=== PATIENT | male | born 1980 | race Caucasian/White ===

== ENCOUNTER 2018-03-14 17:11 | Emergency (ER) | payer OTHER ==
[~2018-03-14] VITALS: Ht 177.8 cm; Wt 93.0 kg
[~2018-03-14 17:11] MED LIST: CIPRO500 MG PO; CYCLOBENZAPRINE5 MG PO; FLEXERIL PO; IBUPROFEN 800800 M1 PO; INDOMETHACIN 5050 M1 PO; LEVSIN0.125 MG PO; MEDROLDOSEPACK PO; NAPROSYN500 MG PO; NOHOMEMEDICATIONS; NORCO 5-325 TA1 EACH PO; PERCOCET 5-3251 EACH PO; PHENAZOPYRIDIN200 M2 PO; PREDNISONE 10 M10 MG PO; PREDNISONE 20 M20 M1 PO; TESSALON PERLE100 MG PO; TORADOL 10 MG T10 MG PO; ULTRAM 50MG TAB50 MG PO; VENTOLIN17 GM INH
[2018-03-14] MEDS ORDERED: ALLOPURINOL 30300 M1 PO (17:21)
[2018-03-14] MEDS ORDERED: NORCO 5-325 TA1 EAC1 PO (18:16)
[2018-03-14] MEDS ORDERED: MEDROLDOSEPACK PO (18:16)
[2018-03-14 18:25] VITALS: BP 120/66
== END 2018-03-14 18:28 | disposition home or self-care (01) ==
LOC: M.ERS 17:11
DX: M10.9 Gout, unspecified (principal); Z86.14 Personal history of Methicillin resistant Staphylococcus aureus infection

== ENCOUNTER 2018-06-23 07:42 | Emergency (ER) | payer OTHER ==
[~2018-06-23] VITALS: Ht 177.8 cm; Wt 93.0 kg
[~2018-06-23 07:42] MED LIST changes: +ALLOPURINOL 30300 M1 PO; +NORCO 5-325 TA1 EAC1 PO
[2018-06-23] MEDS ORDERED: ZYLOPRIM300 MG PO (07:53)
[2018-06-23] MEDS ORDERED: PREDNISONE 10 M10 MG PO (07:54)
[2018-06-23 08:20] LABS: ABSOLUTE BASOPHILS 0.1 thou/uL (0.0-0.2); ABSOLUTE EOSINOPHILS 0.6 thou/uL (0.0-0.7); ABSOLUTE LYMPHOCYTES 2.6 thou/uL (0.8-5.3); ABSOLUTE MONOCYTES 1.1 thou/uL (0.0-1.2); ABSOLUTE NEUTROPHILS 9.9 thou/uL (1.6-8.1); BASOPHILS 0.8 %; HEMATOCRIT 44.3 % (42.0-52.0); HEMOGLOBIN 15.3 gm/dL (14.0-18.0); LYMPHOCYTES 17.9 %; MCH 30.4 pg (26.0-34.0); MCHC 34.5 g/dL (28.0-37.0); MCV 88.2 fL (80.0-100.0); MPV 8.7 fl. (7.2-11.1); NUCLEATED RBCS 0 /100WBC; PLATELET COUNT* 268 thou/uL (150-400); POLYS 69.3 %; RBC 5.02 mil/uL (4.50-6.00); RDW-CV 13.5 % (10.5-14.5); WBC 14.3 thou/uL (4.0-11.0)
[2018-06-23 08:26] LABS: ANION GAP 11 mmol/L (7-16); BUN 14 mg/dL (7-18); CHLORIDE 102 mmol/L (98-107); CO2 26 mmol/L (21-32); CREATININE 1.4 mg/dL (0.6-1.3); GLUCOSE 106 mg/dL (70-99); POTASSIUM 4.2 mmol/L (3.5-5.1); SODIUM 139 mmol/L (136-145)
[2018-06-23 08:31] LABS: APTT 28.3 Seconds (25.0-31.3)
[2018-06-23 08:37] LABS: ALBUMIN 4.1 g/dL (3.4-5.0); ALKALINE PHOSPHATASE 65 U/L (46-116); LIPASE 293 U/L (73-393); MAGNESIUM 1.8 mg/dL (1.8-2.4); NT-PRO BRAIN NAT PEPTIDE 23 pg/mL (<300); SGOT 27 U/L (15-37); SGPT 59 U/L (30-65); TOTAL BILIRUBIN 0.5 mg/dL (<0.1-1.0); TOTAL PROTEIN 8.7 g/dL (6.4-8.2); TROPONIN-I LEVEL <0.06 ng/mL (<0.06)
--- NOTE | 2018-06-23 09:12 | EKG ---
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
[2018-06-23] MEDS ORDERED: HYDROCODONE-AP1 EAC6 PO (11:03)
[2018-06-23] MEDS ORDERED: FLEXERIL PO (11:03)
[2018-06-23 11:23] VITALS: BP 119/77
--- NOTE | 2018-06-23 17:51 | EKG ---
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
== END 2018-06-23 11:23 | disposition home or self-care (01) ==
LOC: M.ERS 07:42
PROVIDERS: Emergency Medicine Emergency Medical Services
DX: R07.89 Other chest pain (principal); M79.601 Pain in right arm; M10.9 Gout, unspecified

== ENCOUNTER 2018-10-13 17:24 | Emergency (ER) | payer OTHER ==
[~2018-10-13] VITALS: Ht 177.8 cm; Wt 95.3 kg
[~2018-10-13 17:24] MED LIST changes: +HYDROCODONE-AP1 EAC6 PO; +ZYLOPRIM300 MG PO
[2018-10-13 18:04] LABS: ABSOLUTE BASOPHILS 0.1 thou/uL (0.0-0.2); ABSOLUTE EOSINOPHILS 0.5 thou/uL (0.0-0.7); ABSOLUTE LYMPHOCYTES 2.1 thou/uL (0.8-5.3); ABSOLUTE MONOCYTES 1.5 thou/uL (0.0-1.2); ABSOLUTE NEUTROPHILS 13.2 thou/uL (1.6-8.1); BASOPHILS 0.8 %; EOSINOPHILS 2.9 %; HEMATOCRIT 43.4 % (42.0-52.0); HEMOGLOBIN 15.2 gm/dL (14.0-18.0); LYMPHOCYTES 11.9 %; MCH 30.2 pg (26.0-34.0); MCHC 35.1 g/dL (28.0-37.0); MCV 86.2 fL (80.0-100.0); MONOCYTES 8.5 %; MPV 8.4 fl. (7.2-11.1); NUCLEATED RBCS 0 /100WBC; PLATELET COUNT* 240 thou/uL (150-400); POLYS 75.9 %; RBC 5.04 mil/uL (4.50-6.00); RDW-CV 14.1 % (10.5-14.5); WBC 17.3 thou/uL (4.0-11.0)
[2018-10-13 18:16] LABS: CALCIUM 9.6 mg/dL (8.5-10.1); CREATININE 1.3 mg/dL (0.6-1.3); POTASSIUM 4.2 mmol/L (3.5-5.1)
[2018-10-13 18:21] LABS: ALBUMIN 3.9 g/dL (3.4-5.0); TOTAL BILIRUBIN 0.7 mg/dL (<0.1-1.0); TOTAL PROTEIN 8.2 g/dL (6.4-8.2); URIC ACID* 9.9 mg/dL (2.6-7.2)
[2018-10-13 19:11] LABS: ESR (SEDRATE) 18 mm/hr (0-15)
[2018-10-13] MEDS ORDERED: NORCO 5-325 TA1 EACH PO (20:24)
[2018-10-13 20:53] VITALS: BP 145/78
== END 2018-10-13 20:53 | disposition home or self-care (01) ==
LOC: M.ERS 17:24
PROVIDERS: Nurse Practitioner Family
DX: M79.672 Pain in left foot (principal); M25.532 Pain in left wrist; M54.5 Low back pain; M10.9 Gout, unspecified

== ENCOUNTER 2019-06-25 14:14 | Inpatient (IN) | payer OTHER ==
[~2019-06-25] VITALS: Ht 177.8 cm; Wt 99.8 kg
[~2019-06-25 14:14] MED LIST changes: +ALLOPURINOL 10100 M1 PO
[2019-06-25 14:22] VITALS: BP 122/80
[2019-06-25] MEDS ORDERED: INDOMETHACIN SR75 MG PO (14:26)
[2019-06-25 15:21] LABS: ABSOLUTE BASOPHILS 0.2 thou/uL (0.0-0.2); ABSOLUTE EOSINOPHILS 0.4 thou/uL (0.0-0.7); ABSOLUTE LYMPHOCYTES 1.5 thou/uL (0.8-5.3); ABSOLUTE MONOCYTES 1.1 thou/uL (0.0-1.2); ABSOLUTE NEUTROPHILS 10.8 thou/uL (1.6-8.1); BASOPHILS 1.2 %; EOSINOPHILS 3.2 %; HEMATOCRIT 41.3 % (42.0-52.0); HEMOGLOBIN 14.4 gm/dL (14.0-18.0); LYMPHOCYTES 10.6 %; MCH 29.9 pg (26.0-34.0); MCHC 34.8 g/dL (28.0-37.0); MONOCYTES 7.6 %; MPV 8.4 fl. (7.2-11.1); NUCLEATED RBCS 0 /100WBC; PLATELET COUNT* 265 thou/uL (150-400); POLYS 77.4 %; RDW-CV 13.6 % (10.5-14.5); WBC 13.9 thou/uL (4.0-11.0)
[2019-06-25 15:52] LABS: CALCIUM 9.3 mg/dL (8.5-10.1); CREATININE 1.5 mg/dL (0.6-1.3); POTASSIUM 3.8 mmol/L (3.5-5.1)
[2019-06-25 15:56] LABS: TOTAL BILIRUBIN 0.8 mg/dL (<0.1-1.0); TOTAL PROTEIN 8.6 g/dL (6.4-8.2)
[2019-06-25 16:52] VITALS: BP 134/106
[2019-06-25 18:00] VITALS: BP 134/88
[2019-06-25] MEDS ORDERED: MITIGARE0.6 MG PO (18:10)
[2019-06-25 19:35] VITALS: BP 111/66
[2019-06-25 20:05] LABS: BF RBC 3261 /mm3; TOTAL CELL COUNT 32857 /mm3
[2019-06-25 20:38] LABS: TOTAL VOLUME 20 ml
[2019-06-25 20:39] LABS: CLARITY CLOUDY
[2019-06-26] VITALS: BP 106/65
[2019-06-26 04:00] VITALS: BP 112/51
[2019-06-26 04:43] LABS: ABSOLUTE EOSINOPHILS 0.2 thou/uL (0.0-0.7); ABSOLUTE LYMPHOCYTES 1.1 thou/uL (0.8-5.3); ABSOLUTE MONOCYTES 0.9 thou/uL (0.0-1.2); ABSOLUTE NEUTROPHILS 8.2 thou/uL (1.6-8.1); BASOPHILS 0.3 %; EOSINOPHILS 1.8 %; HEMATOCRIT 37.1 % (42.0-52.0); HEMOGLOBIN 12.8 gm/dL (14.0-18.0); LYMPHOCYTES 10.4 %; MCH 29.7 pg (26.0-34.0); MCHC 34.6 g/dL (28.0-37.0); MCV 85.9 fL (80.0-100.0); MONOCYTES 8.3 %; NUCLEATED RBCS 0 /100WBC; PLATELET COUNT* 194 thou/uL (150-400); POLYS 79.2 %; RBC 4.32 mil/uL (4.50-6.00); RDW-CV 13.3 % (10.5-14.5); WBC 10.4 thou/uL (4.0-11.0)
[2019-06-26 04:56] LABS: CALCIUM 8.4 mg/dL (8.5-10.1); CREATININE 1.5 mg/dL (0.6-1.3)
[2019-06-26 06:10] LABS: AMP/METHAMP Negative (Negative); BARBITURATES Negative (Negative); BENZODIAZEPINES Negative (Negative); COCAINE Negative (Negative); METHADONE Negative (Negative); OPIATES POSITIVE (Negative); PCP Negative (Negative); THC Negative (Negative)
[2019-06-26 06:23] LABS: SOURCE RIGHT KNEE
[2019-06-26 06:24] LABS: BF LYMPHOCYTES 8 %; BF MONOCYTES 3 %; BF POLYS 89 %
[2019-06-26 07:20] VITALS: BP 126/76
[2019-06-26 08:55] VITALS: BP 112/51
[2019-06-26 15:49] VITALS: BP 125/85
[2019-06-26 20:55] VITALS: BP 132/78
[2019-06-27] VITALS: BP 121/76
[2019-06-27 03:30] VITALS: BP 115/62
[2019-06-27 07:15] VITALS: BP 109/61
--- NOTE | 2019-06-27 07:22 | CON ---
[address] [address] CONSULTATION Name: GEMMAJAYDA L Room: [address] IN M.R.#: [id number] Admission: 06/25/19 Attend Phys: Bryn Li MD Discharge: Date of : 76 Report #: [id number] THIS REPORT FOR: //name// CC: Bryn Li FAM physician/PCP DATE OF SERVICE: 06/26/2019 INFECTIOUS DISEASE CONSULTATION ATTENDING PHYSICIAN: Bryn Li MD REASON FOR EVALUATION: Septic arthritis, right knee. HISTORY OF PRESENT ILLNESS: Chart reviewed, patient examined. This is a 39-year-old with a known history of what sounds like recurrent septic arthritis, also has known gout, who had abrupt onset of right knee pain. He denies antecedent injury. He notes this is actually not the first time. He has had involvement of both knees at points over the course of last 8 years as well as the left elbow. He states most recently in 2018 while traveling. He was hospitalized, felt to have an infection. He does not remember details. He suspects that he had cultures; however, he has no recollection of any particular organism. Denies any significant fevers or chills. Appetite has been somewhat diminished. No pulmonary or gastrointestinal-related complaints. He is tentatively scheduled to undergo operative debridement. He had an arthrocentesis which showed elevated white count of 32,857 and 89% polynuclear cells. Due to concern about infectious cause, he was started empirically on therapy with vancomycin. ALLERGIES: None known. CURRENT MEDICATIONS: Include allopurinol, vancomycin, pantoprazole, colchicine, enoxaparin, Unasyn, acetaminophen, p.r.n. analgesics and antiemetics. PAST MEDICAL HISTORY: As described above, previous history of aneurysm, history of gout, amputation of fifth digit left hand. SOCIAL HISTORY: Nonsmoker, no ethanol, no illicit drug use. FAMILY HISTORY: Noncontributory. REVIEW OF SYSTEMS: As above, otherwise unremarkable. PHYSICAL EXAMINATION: GENERAL: He is alert and cooperative. He is seen in the preoperative area, mild to [place] [address] CONSULTATION Name: JAYDA MENENDEZ Room: [address]#: [id number] Admission: 06/25/19 Attend Phys: Bryn Li MD Discharge: Date of : 76 Report #: [id number] VITAL SIGNS: Temperature max 101.3, more recently 98.8; pulse 100; respirations 17; blood pressure 112/51. SKIN: Warm, dry. No rashes. HEENT: Otherwise unremarkable. Normocephalic. Extraocular muscles intact. NECK: Supple. LUNGS: Clear to auscultation bilaterally. HEART: Borderline tachycardic. I do not appreciate a murmur. ABDOMEN: Soft, nontender, nondistended. EXTREMITIES: Right-sided compression dressing. There is some evidence of swelling, it is tender, did not attempt range of motion. LABORATORY AND X-RAY DATA: Right knee fluid yellow, cloudy, 32,857 white cells, 30-61 red cells, 89% polys, 3% monocytes, 8% lymphs. CRP of 118.4. Sed rate of 27. Lactic acid 1.2. Electrolytes: Sodium 137, potassium 4.0, chloride 103, bicarbonate 27, anion gap of 7, BUN and creatinine of 17 and 1.5, glucose of 102. Estimated GFR 52. CBC: White count of 10.4, H and H of 12.8 and 37.1, platelets of 194. ASSESSMENT AND PLAN: Inflammatory process involving the right knee, somewhat unusual to have in adult, recurrent, spontaneous involving multiple different joints over the span of several years without antecedent injury that can entirely exclude it given his history what he recalls. It is reasonable to use anti-gout therapy as well. We will follow up on the fluid microbiology. At this point, we would continue empiric antimicrobial therapy. <ELECTRONICALLY SIGNED> By: Renaldo Lackey MD 06/27/19 0722 1057 [id number] Lackey MD /nt
[2019-06-27 08:31] LABS: CALCIUM 8.1 mg/dL (8.5-10.1); CREATININE 1.2 mg/dL (0.6-1.3); POTASSIUM 3.4 mmol/L (3.5-5.1)
[2019-06-27 08:46] LABS: ABSOLUTE BASOPHILS 0.1 thou/uL (0.0-0.2); ABSOLUTE EOSINOPHILS 0.1 thou/uL (0.0-0.7); ABSOLUTE LYMPHOCYTES 1.8 thou/uL (0.8-5.3); ABSOLUTE MONOCYTES 0.8 thou/uL (0.0-1.2); ABSOLUTE NEUTROPHILS 8.6 thou/uL (1.6-8.1); BASOPHILS 0.6 %; EOSINOPHILS 0.9 %; HEMOGLOBIN 12.5 gm/dL (14.0-18.0); LYMPHOCYTES 16.1 %; MCH 29.4 pg (26.0-34.0); MCHC 34.7 g/dL (28.0-37.0); MCV 84.7 fL (80.0-100.0); MONOCYTES 7.2 %; MPV 7.8 fl. (7.2-11.1); NUCLEATED RBCS 0 /100WBC; PLATELET COUNT* 208 thou/uL (150-400); POLYS 75.2 %; RBC 4.25 mil/uL (4.50-6.00); RDW-CV 13.1 % (10.5-14.5); WBC 11.4 thou/uL (4.0-11.0)
--- NOTE | 2019-06-27 10:05 | EKG ---
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: MATHIEU : 1980 Requested By: Yessi Schuster Order Number: [id number] MD: Frankie Daniel Measurements Intervals [place] Rate: 109 P: 41 [place]: 164 QRS: 53 QRSD: 103 T: 7 QT: 344 QTc: 464 Interpretive Statements Sinus tachycardia Inferior infarct, old Compared to ECG 06/23/2018 09:57:53 Sinus rhythm no longer present Myocardial infarct finding still present Electronically Signed On 06-27-2019 10:04:45 FUNCTIONAL ANALYST by Frankie Daniel [email or web address] <ELECTRONICALLY SIGNED> By: Frankie Daniel MD, FACWilfred 06/27/19 1004 1656 1656 Frankie Daniel MD, [facility] /EPI
[2019-06-27 12:06] LABS: BODY FLUID PROTEIN 5.1 g/dL (())
[2019-06-27 17:02] VITALS: BP 141/83
[2019-06-27 20:19] VITALS: BP 141/72
[2019-06-28] VITALS: BP 120/82
[2019-06-28 03:51] LABS: ABSOLUTE EOSINOPHILS 0.4 thou/uL (0.0-0.7); ABSOLUTE LYMPHOCYTES 2.1 thou/uL (0.8-5.3); ABSOLUTE MONOCYTES 0.8 thou/uL (0.0-1.2); ABSOLUTE NEUTROPHILS 5.2 thou/uL (1.6-8.1); BASOPHILS 0.4 %; EOSINOPHILS 4.8 %; HEMATOCRIT 35.1 % (42.0-52.0); HEMOGLOBIN 12.4 gm/dL (14.0-18.0); MCH 30.1 pg (26.0-34.0); MCHC 35.3 g/dL (28.0-37.0); MCV 85.2 fL (80.0-100.0); MONOCYTES 9.8 %; MPV 8.4 fl. (7.2-11.1); NUCLEATED RBCS 0 /100WBC; PLATELET COUNT* 237 thou/uL (150-400); RBC 4.12 mil/uL (4.50-6.00); RDW-CV 13.1 % (10.5-14.5); WBC 8.6 thou/uL (4.0-11.0)
[2019-06-28 04:00] VITALS: BP 128/76
[2019-06-28 04:03] LABS: ALBUMIN 2.9 g/dL (3.4-5.0); CREATININE 1.3 mg/dL (0.6-1.3); POTASSIUM 3.6 mmol/L (3.5-5.1); TOTAL BILIRUBIN 0.5 mg/dL (<0.1-1.0)
[2019-06-28 07:10] VITALS: BP 141/90
[2019-06-28 09:09] LABS: INFLUENZA A ANTIGEN Negative (Negative); INFLUENZA B ANTIGEN Negative (Negative)
[2019-06-28 17:14] VITALS: BP 129/78
[2019-06-28 21:13] VITALS: BP 116/52
[2019-06-29 04:24] LABS: HEMATOCRIT 36.4 % (42.0-52.0); HEMOGLOBIN 12.5 gm/dL (14.0-18.0); MCH 29.3 pg (26.0-34.0); MCHC 34.5 g/dL (28.0-37.0); MCV 84.9 fL (80.0-100.0); MPV 8.5 fl. (7.2-11.1); NUCLEATED RBCS 0 /100WBC; PLATELET COUNT* 229 thou/uL (150-400); RBC 4.28 mil/uL (4.50-6.00); RDW-CV 12.8 % (10.5-14.5); WBC 6.1 thou/uL (4.0-11.0)
[2019-06-29 04:50] LABS: ALBUMIN 3.1 g/dL (3.4-5.0); CALCIUM 8.5 mg/dL (8.5-10.1); CREATININE 1.5 mg/dL (0.6-1.3); POTASSIUM 3.5 mmol/L (3.5-5.1); TOTAL BILIRUBIN 0.5 mg/dL (<0.1-1.0); TOTAL PROTEIN 7.3 g/dL (6.4-8.2)
[2019-06-29 05:25] LABS: ABSOLUTE EOSINOPHILS 0.1 thou/uL (0.0-0.7); ABSOLUTE LYMPHOCYTES 0.9 thou/uL (0.8-5.3); ABSOLUTE MONOCYTES 0.5 thou/uL (0.0-1.2); ABSOLUTE NEUTROPHILS 4.5 thou/uL (1.6-8.1); ANISOCYTOSIS 1+; PLATELET ESTIMATE ADEQUATE; POIKILOCYTOSIS 1+
[2019-06-29 07:25] VITALS: BP 123/79
[2019-06-29] MEDS ORDERED: HYDROCODON-ACE1 EAC7 PO (09:24)
[2019-06-29] MEDS ORDERED: BENZONATATE100 MG PO (09:24)
[2019-06-29] MEDS ORDERED: PANTOPRAZOLE SO40 M1 PO (09:24)
[2019-06-29] MEDS ORDERED: MUCINEX600 MG PO (09:24)
[2019-06-29 09:35] VITALS: BP 123/79
--- NOTE | 2019-07-01 11:32 | OP ---
[address] [address] OPERATIVE REPORT Name: JAYDA MENENDEZ Gabriel Room: [address] IN .R.#: [id number] Admission: 06/25/19 Attend Phys: Bryn Li MD Discharge: 06/29/19 Date of : 76 Report #: [id number] THIS REPORT FOR: //name// CC: Bryn Li [facility] physician/PCP DICTATED BY: Smith Arreguin DO DATE OF SERVICE: 06/26/2019 PREOPERATIVE DIAGNOSIS: Right knee septic arthritis. POSTOPERATIVE DIAGNOSIS: Right knee septic arthritis versus possible acute gout. PROCEDURE PERFORMED: Right knee arthroscopic irrigation and debridement. SURGEON: Asad wall DO PLASTER MOLD MAKER: Smith Arreguin DO PLASTER MOLD MAKER: Lin Irwin DO ANESTHESIA: General. ESTIMATED BLOOD LOSS: 5 mL. SPECIMENS: Aerobic and anaerobic cultures x 2. COMPLICATIONS: None. CONDITION: The patient is stable to PACU. INDICATIONS FOR PROCEDURE: The patient is a pleasant 39-year-old male who presented to the Emergency Department yesterday evening for evaluation of right knee pain. He has a history of septic arthritis on 2 separate occasions in this knee, most recently back in 2017. This was treated with arthroscopic irrigation and debridement at an outside facility. He denied any specific injury or inciting event. He had significant swelling and inability to bear weight to the right knee. He also had decreased passive and active range of motion. The right knee was aspirated yesterday evening and synovial fluid analysis showed 33,000 white blood cells with 89% PMNs. Right knee arthroscopic irrigation and debridement was recommended for the patient. The risks, benefits, and alternatives were discussed and the patient wished to proceed. INTRAOPERATIVE FINDINGS: Upon diagnostic arthroscopy of the right knee, [place] [address] OPERATIVE REPORT Name: JAYDA MENENDEZ Room: [address] IN [facility].#: [id number] Admission: 06/25/19 Attend Phys: Bryn iL MD Discharge: 06/29/19 Date of : 76 Report #: [id number] was noted to be what appeared to be gouty tophi in all 3 compartments. There was extensive scar tissue formation mostly in the anterior aspect of the knee, likely from prior arthroscopic procedures. He was noted to have some contracture of the prepatellar fat pad. There was grade 2 degenerative change throughout the entire knee. There was no gross purulence. DESCRIPTION OF PROCEDURE: The patient was seen and examined in the preoperative holding area. The correct operative extremity was then marked. Written consent was obtained for the procedure. The patient was transferred to the operating room and placed supine on the operating table. He was given the benefit of general anesthesia. A well-padded tourniquet was placed to the right thigh. The right lower extremity was placed in the arthroscopic leg francisco. The left lower extremity was well padded. Right lower extremity was prepped and draped in the usual sterile fashion. Timeout was performed to verify the correct patient, procedure, and operative extremity and all were in agreement. Right lower extremity was then exsanguinated with the Esmarch and the tourniquet was inflated to 300 mmHg. This was inflated for approximately 20 minutes. Procedure was then begun with establishing the anterolateral portal with an 11 blade scalpel. The arthroscope was then inserted into the knee and diagnostic arthroscopy was performed with the above findings. The medial portal was then established with a spinal needle and visualization with the arthroscope. This was created with an 11 blade scalpel. A trocar was then inserted followed by the arthroscopic shaver. A debridement was then performed of the scar tissue and hyperemic synovium. The knee was then irrigated with a total of 9 liters of normal saline. The knee was drained. At the time of insertion of the initial trocar, cultures were obtained from the synovial fluid, 2 anaerobic cultures and 2 aerobic cultures. After running 9 liters of fluid through the knee, the arthroscopic instruments were then removed. The incisions were closed with simple interrupted nylon sutures. A 20 mL of 0.5% ropivacaine were injected into the knee. Sterile dressing of Xeroform, 4 x 4s, soft roll, and an Leonardo wrap was applied to the right lower extremity. The patient was awakened from anesthesia and transferred to the PACU in stable condition. POSTOPERATIVE PLAN: The patient will be re-admitted to the floor. We will follow his cultures from both the aspirate as well as the intraoperative cultures. Infectious Disease will be consulted. He will also be started on anti-inflammatories for treatment of possible gout. We will await results of the synovial fluid analysis. The patient can be weightbearing as tolerated to the right lower extremity. <ELECTRONICALLY SIGNED> By: Tex Talbert DO 07/01/19 1132 1149 1207Asad Wall DO /nasra
== END 2019-06-29 17:16 | disposition home or self-care (01) | DRG 501 ==
LOC: M.ERS 14:14 → M.ORTHSURG 15:50 → M.TBA-ER 15:50 → M.ORTHSURG 17:21
PROVIDERS: Family Medicine; Orthopaedic Surgery; ADMIT Internal Medicine
PROC: 0JDN0ZZ Extraction of Right Lower Leg Subcutaneous Tissue and Fascia, Open Approach (ICD-10-PCS; principal; 2019-06-26)
DX: M00.9 Pyogenic arthritis, unspecified (principal); N17.9 Acute kidney failure, unspecified; M10.9 Gout, unspecified; J98.8 Other specified respiratory disorders; M11.9 Crystal arthropathy, unspecified; M25.461 Effusion, right knee; Z89.9 Acquired absence of limb, unspecified; Z79.899 Other long term (current) drug therapy

== ENCOUNTER 2019-07-06 09:28 | Emergency (ER) | payer OTHER ==
[~2019-07-06] VITALS: Ht 177.8 cm; Wt 97.5 kg
[~2019-07-06 09:28] MED LIST changes: +BENZONATATE100 MG PO; +HYDROCODON-ACE1 EAC7 PO; +INDOMETHACIN SR75 MG PO; +MITIGARE0.6 MG PO; +MUCINEX600 MG PO; +PANTOPRAZOLE SO40 M1 PO
[2019-07-06] MEDS ORDERED: INDOMETHACIN 2525 MG PO (10:17)
[2019-07-06 10:37] VITALS: BP 130/75
== END 2019-07-06 10:37 | disposition home or self-care (01) ==
LOC: M.ERS 09:28
DX: G89.18 Other acute postprocedural pain (principal); M25.561 Pain in right knee; Z86.14 Personal history of Methicillin resistant Staphylococcus aureus infection

== ENCOUNTER 2019-11-18 21:03 | Emergency (ER) | payer OTHER ==
[~2019-11-18] VITALS: Ht 177.8 cm; Wt 95.3 kg
[~2019-11-18 21:03] MED LIST changes: +COLCHICINE0.6 MG PO; +INDOMETHACIN 2525 MG PO; +INDOMETHACIN SR75 M1 PO
[2019-11-18] MEDS ORDERED: TORADOL 10 MG T10 MG PO (22:46)
[2019-11-18] MEDS ORDERED: MEDROLDOSEPACK PO (22:46)
[2019-11-18] MEDS ORDERED: HYDROCODON-ACE1 EAC7 PO (22:46)
[2019-11-18 23:14] VITALS: BP 122/72
== END 2019-11-18 23:14 | disposition home or self-care (01) ==
LOC: M.ERS 21:03
DX: M10.062 Idiopathic gout, left knee (principal); Z86.14 Personal history of Methicillin resistant Staphylococcus aureus infection

== ENCOUNTER 2020-03-17 00:14 | Observation (INO) | payer BC ==
[~2020-03-17] VITALS: Ht 177.8 cm; Wt 93.0 kg
[2020-03-17 00:16] VITALS: BP 148/82
[2020-03-17 00:52] LABS: ABSOLUTE EOSINOPHILS 0.6 thou/uL (0.0-0.7); ABSOLUTE LYMPHOCYTES 3.8 thou/uL (0.8-5.3); ABSOLUTE MONOCYTES 1.2 thou/uL (0.0-1.2); BASOPHILS 0.2 %; EOSINOPHILS 4.5 %; HEMATOCRIT 44.2 % (42.0-52.0); LYMPHOCYTES 27.9 %; MCH 29.9 pg (26.0-34.0); MCV 88.1 fL (80.0-100.0); MONOCYTES 8.9 %; MPV 8.2 fl. (7.2-11.1); NUCLEATED RBCS 0 /100WBC; PLATELET COUNT* 275 thou/uL (150-400); POLYS 58.5 %; RBC 5.02 mil/uL (4.50-6.00); RDW-CV 15.5 % (10.5-14.5); WBC 13.7 thou/uL (4.0-11.0)
[2020-03-17 00:56] LABS: CREATININE 1.5 mg/dL (0.6-1.3); POTASSIUM 3.4 mmol/L (3.5-5.1)
[2020-03-17 01:00] LABS: PROTIME 10.4 Seconds (9.20-11.50); TOTAL BILIRUBIN 0.5 mg/dL (<0.1-1.0); TOTAL PROTEIN 7.7 g/dL (6.4-8.2)
[2020-03-17 02:47] LABS: URINE BILIRUBIN NEGATIVE (Negative); URINE BLOOD 1+ (Negative); URINE CLARITY CLEAR; URINE COLOR YELLOW; URINE GLUCOSE-RANDOM NEGATIVE (Negative); URINE KETONES NEGATIVE (Negative); URINE LEUKOCYTES-REFLEX TRACE (Negative); URINE NITRITE-REFLEX NEGATIVE (Negative); URINE PROTEIN NEGATIVE (Negative); URINE UROBILINOGEN 0.2 E.U./dl (0.2-1.0)
[2020-03-17 02:54] LABS: AMP/METHAMP Negative (Negative); BARBITURATES Negative (Negative); BENZODIAZEPINES Negative (Negative); COCAINE Negative (Negative); METHADONE Negative (Negative); OPIATES Negative (Negative); PCP Negative (Negative); THC Negative (Negative)
[2020-03-17 03:11] LABS: RENAL EPITHELIAL CELLS 0-3 Few /LPF (None Seen); SQUAMOUS 0-3 Few /LPF (0-3); URINE RBC 3-10 Few /HPF (0-2); URINE WBC-REFLEX 6-15 Few /HPF (0-5)
[2020-03-17 03:12] LABS: AMORPHOUS PHOSPHATES Many /LPF (None Seen); CASTS None Seen /LPF (None Seen); MUCUS 4-6 Moderate strn/LPF (None Seen)
[2020-03-17 03:34] VITALS: BP 119/79
[2020-03-17 08:00] VITALS: BP 112/68
--- NOTE | 2020-03-17 11:14 | EKG ---
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: [place] : 1980 Requested By: Michelle Clay Order Number: [id number] MD: Frankie Daniel Measurements Intervals [place] Rate: 103 P: [place]: QRS: 70 QRSD: 113 T: -26 QT: 328 QTc: 430 Interpretive Statements sinus tachycardia Baseline wander in lead(s) III Compared to ECG 06/25/2019 16:56:29 no change Electronically Signed On 03-17-2020 11:14:18 CDT by Frankie Daniel [email or web address] <ELECTRONICALLY SIGNED> By: Frankie Daniel MD, FACC 03/17/20 1114 0024 0024 Frankie Daniel MD, [facility] /EPI
--- NOTE | 2020-03-17 11:16 | CON ---
[address] [address] CONSULTATION Name: JAYDA MENENDEZ Room: [address] Carolee Iverson#: [id number] Admission: 03/17/20 Attend Phys: Bryn Li MD Discharge: Date of : 76 Report #: [id number] THIS REPORT FOR: //name// cc: CLEMENTINE Dodson family physician/PCP CLEMENTINE Dodson family physician/PCP ~ THIS REPORT FOR: //name// DATE OF SERVICE: 03/17/2020 CARDIOLOGY CONSULTATION HISTORY OF PRESENT ILLNESS: The patient is a 39-year-old single white male who I was asked to see in the hospital today after he complained of being short of breath. The patient has no previous history of heart disease. He was actually admitted here to [facility] in June of this year with an episode of acute gout. He stays very active, working out at the gym almost on a daily basis. He has had no previous history of heart disease. He was doing well until last night, he went to sleep. He then awakened at 10:00 p.m. complaining hard to take a deep breath. He felt short of breath. There was no radiation of the heaviness into his arms or jaw. He felt as if he needed to burp. He denies any recent fever or cough. He denies palpitations or syncope. His girlfriend brought him to the Emergency Room and he is admitted for further evaluation and treatment. PAST MEDICAL HISTORY: He has had surgery on his left hand, following an accident. 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 He apparently has neck pain and had an MRI that showed brain aneurysm and he is scheduled to undergo percutaneous ablation of his aneurysm at in 2 weeks. He has no history of hypertension, diabetes or hyperlipidemia. MEDICATIONS: He currently is receiving injections of testosterone, not prescribed by a physician. He takes medications for gout. ALLERGIES: He has no known drug allergies. FAMILY HISTORY: He is adopted. 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 No smoking, alcohol abuse or illicit drug use. REVIEW OF SYSTEMS: No history of stroke, asthma, liver disease, cancer or chronic skin condition. PHYSICAL EXAMINATION: GENERAL: Middle-aged male, appeared in no distress, lying in bed. VITAL SIGNS: He had a blood pressure of 140/80, pulse is 90, [place] [address] CONSULTATION Name: JAYDA MENENDEZ Room: [address]#: [id number] Admission: 03/17/20 Attend Phys: Bryn Li MD Discharge: Date of : 76 Report #: [id number] afebrile. HEENT: He was anicteric. Conjunctivae are pink. Mucous membranes are moist. NECK: Veins nondistended. No carotid bruits. Neck supple. CHEST: Clear to auscultation. CARDIOVASCULAR: Regular rate and rhythm without murmurs. ABDOMEN: Soft. EXTREMITIES: Had no edema. Posterior tibial pulse 2+ bilaterally. SKIN: Warm and dry. NEUROLOGIC: Nonfocal. LYMPH: No adenopathy. MUSCULOSKELETAL: No joint effusion. DIAGNOSTIC DATA: His ECG last night showed sinus tachycardia. There was artifact noted, but no significant ST or T-wave changes were noted. His workup in the Emergency Room last night, he had a portable chest x-ray that showed normal heart size, clear lung james. He actually had a CT scan of the chest using a PE protocol that showed no pulmonary embolus or cardiomegaly. He was noted to have no significant coronary artery calcification or effusion. His lab work last night, he had sodium 137, potassium 3.4, and creatinine 1.5. Liver function studies were normal. Troponins all 0.06. His white blood cell count was 13.7 and hemoglobin 15. IMPRESSION AND RECOMMENDATIONS: 1. Chest heaviness. No evidence of acute coronary syndrome. Recommend no further cardiac evaluation. 2. Sudden episode of shortness of breath. Possibly anxiety. No evidence of pneumonia, chronic obstructive pulmonary disease or pulmonary embolus. 3. Brain aneurysm. The patient is scheduled to undergo a procedure at in 2 weeks. 4. History of gout. I think it is reasonable to discharge the patient at this time. Recommend no further cardiac evaluation. <ELECTRONICALLY SIGNED> By: Frankie Daniel MD, FACC 03/17/20 1116 0830 0849Frankie Daniel MD, FACC /nt
[2020-03-17] MEDS ORDERED: XANAX 0.5 MG0.5 M1 PO (13:14)
[2020-03-17 14:03] VITALS: BP 109/78
[2020-03-17 15:06] VITALS: BP 109/78
== END 2020-03-17 15:55 | disposition home or self-care (01) ==
LOC: M.ERS 00:14 → M.TBA-ER 02:32 → M.2W 03:45
PROVIDERS: Personal Emergency Response Attendant; ADMIT Internal Medicine; ATTEND Internal Medicine
DX: F41.0 Panic disorder [episodic paroxysmal anxiety] (principal); M10.9 Gout, unspecified; G89.29 Other chronic pain; I67.1 Cerebral aneurysm, nonruptured; F41.9 Anxiety disorder, unspecified; Z79.899 Other long term (current) drug therapy; Z20.828 Contact with and (suspected) exposure to other viral communicable diseases

== ENCOUNTER 2020-05-05 21:14 | Emergency (ER) | payer BC ==
[~2020-05-05] VITALS: Ht 177.8 cm; Wt 88.5 kg
[~2020-05-05 21:14] MED LIST changes: +XANAX 0.5 MG0.5 M1 PO
[2020-05-05 22:41] LABS: URINE BILIRUBIN NEGATIVE (Negative); URINE BLOOD 3+ (Negative); URINE CLARITY CLEAR; URINE COLOR YELLOW; URINE GLUCOSE-RANDOM NEGATIVE (Negative); URINE KETONES NEGATIVE (Negative); URINE PROTEIN 1+ (Negative); URINE UROBILINOGEN 0.2 E.U./dl (0.2-1.0)
[2020-05-05 22:50] LABS: URINE LEUKOCYTES-REFLEX 3+ (Negative); URINE NITRITE-REFLEX POSITIVE (Negative)
[2020-05-05 22:54] LABS: ABSOLUTE BASOPHILS 0.1 thou/uL (0.0-0.2); ABSOLUTE EOSINOPHILS 0.6 thou/uL (0.0-0.7); ABSOLUTE LYMPHOCYTES 3.1 thou/uL (0.8-5.3); ABSOLUTE MONOCYTES 0.6 thou/uL (0.0-1.2); ABSOLUTE NEUTROPHILS 4.1 thou/uL (1.6-8.1); BASOPHILS 0.8 %; EOSINOPHILS 6.8 %; HEMATOCRIT 26.2 % (42.0-52.0); HEMOGLOBIN 8.2 gm/dL (14.0-18.0); LYMPHOCYTES 36.6 %; MCH 23.5 pg (26.0-34.0); MCHC 31.3 g/dL (28.0-37.0); MCV 75.1 fL (80.0-100.0); MONOCYTES 7.7 %; MPV 7.6 fl. (7.2-11.1); NUCLEATED RBCS 0 /100WBC; PLATELET COUNT* 318 thou/uL (150-400); POLYS 48.1 %; RBC 3.49 mil/uL (4.50-6.00); RDW-CV 20.4 % (10.5-14.5); WBC 8.4 thou/uL (4.0-11.0)
[2020-05-05 23:00] LABS: CALCIUM 9.1 mg/dL (8.5-10.1); CREATININE 1.3 mg/dL (0.6-1.3); POTASSIUM 3.9 mmol/L (3.5-5.1)
[2020-05-05] MEDS ORDERED: DOXYCYCLINE 10100 MG PO (23:30)
[2020-05-05] MEDS ORDERED: MUPIROCIN15 GM TOP (23:30)
[2020-05-05 23:39] LABS: CASTS None Seen /LPF (None Seen); SQUAMOUS 0-3 Few /LPF (0-3); URINE WBC-REFLEX >25 Many /HPF (0-5); WBC CLUMPS Few (None Seen)
[2020-05-05 23:40] VITALS: BP 140/70
[2020-05-05 23:40] LABS: CRYSTALS None Seen /LPF (None Seen)
[2020-05-06 00:09] LABS: ANISOCYTOSIS 2+; HYPOCHROMASIA 1+
[2020-05-06 00:10] LABS: PLATELET ESTIMATE ADEQUATE
== END 2020-05-05 23:41 | disposition home or self-care (01) ==
LOC: M.ERS 21:14
PROVIDERS: Emergency Medicine
DX: T83.84XA Pain due to genitourinary prosthetic devices, implants and grafts, initial encounter (principal); N39.0 Urinary tract infection, site not specified; L03.311 Cellulitis of abdominal wall; Z79.899 Other long term (current) drug therapy; Y84.6 Urinary catheterization as the cause of abnormal reaction of the patient, or of later complication, without mention of misadventure at the time of the procedure; Y92.89 Other specified places as the place of occurrence of the external cause

== ENCOUNTER 2020-05-17 19:05 | Emergency (ER) | payer BC ==
[~2020-05-17] VITALS: Ht 177.8 cm; Wt 90.7 kg
[~2020-05-17 19:05] MED LIST changes: +DOXYCYCLINE 10100 MG PO; +MUPIROCIN15 GM TOP
[2020-05-17] MEDS ORDERED: CELEXA 10 MG TA10 M1 PO (19:22)
[2020-05-17] MEDS ORDERED: LORAZEPAM 0.50.5 MG PO (19:22)
[2020-05-17] MEDS ORDERED: ATARAX (19:22)
[2020-05-17] MEDS ORDERED: KAPSPARGO SPRIN25 MG PO (19:22)
[2020-05-17] MEDS ORDERED: TRAZODONE HCL50 MG PO (19:23)
[2020-05-17 19:48] LABS: INFLUENZA A ANTIGEN Negative (Negative); INFLUENZA B ANTIGEN Negative (Negative)
[2020-05-17 19:58] LABS: ABSOLUTE BASOPHILS 0.1 thou/uL (0.0-0.2); ABSOLUTE EOSINOPHILS 0.5 thou/uL (0.0-0.7); ABSOLUTE LYMPHOCYTES 2.6 thou/uL (0.8-5.3); ABSOLUTE MONOCYTES 0.6 thou/uL (0.0-1.2); ABSOLUTE NEUTROPHILS 4.8 thou/uL (1.6-8.1); BASOPHILS 0.9 %; EOSINOPHILS 6.4 %; HEMATOCRIT 29.5 % (42.0-52.0); LYMPHOCYTES 30.1 %; MCH 22.6 pg (26.0-34.0); MCHC 30.7 g/dL (28.0-37.0); MCV 73.6 fL (80.0-100.0); MONOCYTES 6.9 %; MPV 7.7 fl. (7.2-11.1); NUCLEATED RBCS 0 /100WBC; PLATELET COUNT* 396 thou/uL (150-400); POLYS 55.7 %; RBC 4.01 mil/uL (4.50-6.00); RDW-CV 20.8 % (10.5-14.5); WBC 8.5 thou/uL (4.0-11.0)
[2020-05-17 20:06] LABS: CALCIUM 9.1 mg/dL (8.5-10.1); CREATININE 1.4 mg/dL (0.6-1.3); POTASSIUM 3.7 mmol/L (3.5-5.1)
[2020-05-17 20:16] LABS: TOTAL BILIRUBIN 0.3 mg/dL (<0.1-1.0); TOTAL PROTEIN 7.8 g/dL (6.4-8.2)
[2020-05-17 20:42] LABS: MICROCYTES 2+; OVALOCYTES Occasional
[2020-05-17 20:43] LABS: ANISOCYTOSIS 2+; PLATELET ESTIMATE ADEQUATE
[2020-05-17 20:46] LABS: HYPOCHROMASIA 2+; TEARDROPS Occasional
[2020-05-17 20:55] VITALS: BP 118/72
--- NOTE | 2020-05-18 12:51 | EKG ---
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: Technology Solutions Architect: : 1980 Requested By: Yazmin Medina Order Number: [id number] MD: Gerald Amezquita Measurements Intervals [place] Rate: 90 P: 14 [place]: 176 QRS: 46 QRSD: 104 T: 24 QT: 346 QTc: 424 Interpretive Statements Sinus rhythm Inferior infarct, old possible Compared to ECG 03/17/2020 00:24:06 Myocardial infarct finding persists Sinus tachycardia no longer present Electronically Signed On 05-18-2020 12:50:49 FLORICULTURE TEACHER by Gerald Amezquita [email or web address] <ELECTRONICALLY SIGNED> By: Gerald Amezquita MD, FAC 05/18/20 1250 47 47 Gerald Amezquita MD, [facility] /EPI
== END 2020-05-17 21:20 | disposition home or self-care (01) ==
LOC: M.ERS 19:05
PROVIDERS: Emergency Medicine
DX: R09.81 Nasal congestion (principal); Z20.828 Contact with and (suspected) exposure to other viral communicable diseases; Z86.14 Personal history of Methicillin resistant Staphylococcus aureus infection

== ENCOUNTER 2020-10-01 21:47 | Emergency (ER) | payer BC ==
[~2020-10-01] VITALS: Ht 177.8 cm; Wt 95.3 kg
[~2020-10-01 21:47] MED LIST changes: +ASA81BEC PO; +ATARAX; +CAROSPIR25 MG/5 ML PO; +CELEXA 10 MG TA10 M1 PO; +COZAAR 25 MG TA25 MG PO; +FLOMAX0.4 MG PO; +FUROSEMIDE 20 M20 MG PO; +KAPSPARGO SPRIN25 MG PO; +KEFLEX500 M1 PO; +LORAZEPAM 0.50.5 MG PO; +NORCO5 PO; +PLAVIX 75 MG TA75 MG PO; +PREDNISONE 5 MG5 M1 PO; +SLOW FE142 MG PO; +TRAZODONE HCL50 MG PO
[2020-10-01] MEDS ORDERED: ENTRESTO 24 MG1 EACH PO (22:01)
[2020-10-01] MEDS ORDERED: LEVOFLOXACIN500 MG PO (22:02)
[2020-10-01 22:20] LABS: ABSOLUTE BASOPHILS 0.1 thou/uL (0.0-0.2); ABSOLUTE EOSINOPHILS 0.9 thou/uL (0.0-0.7); ABSOLUTE LYMPHOCYTES 3.1 thou/uL (0.8-5.3); HEMATOCRIT 41.5 % (42.0-52.0); HEMOGLOBIN 13.3 gm/dL (14.0-18.0); LYMPHOCYTES 27.9 %; MCH 24.6 pg (26.0-34.0); MCV 76.9 fL (80.0-100.0); MONOCYTES 9.1 %; MPV 7.9 fl. (7.2-11.1); NUCLEATED RBCS 0 /100WBC; PLATELET COUNT* 220 thou/uL (150-400); RBC 5.39 mil/uL (4.50-6.00); RDW-CV 27.8 % (10.5-14.5); WBC 11.1 thou/uL (4.0-11.0)
[2020-10-01 22:28] LABS: CALCIUM 8.9 mg/dL (8.5-10.1); CREATININE 1.5 mg/dL (0.6-1.3); POTASSIUM 3.8 mmol/L (3.5-5.1)
[2020-10-01 22:32] LABS: APTT 25.6 Seconds (25.0-31.3); INR 0.9
[2020-10-01 22:42] LABS: CK-MB MASS 0.6 ng/mL (<0.5-3.6); MAGNESIUM 2.1 mg/dL (1.8-2.4); TOTAL BILIRUBIN 0.3 mg/dL (<0.1-1.0); TOTAL PROTEIN 8.8 g/dL (6.4-8.2)
[2020-10-01] MEDS ORDERED: XANAX 0.5 MG0.5 MG PO (23:01)
[2020-10-01 23:20] VITALS: BP 116/53
[2020-10-01 23:43] LABS: PLATELET ESTIMATE ADEQUATE
[2020-10-01 23:44] LABS: ANISOCYTOSIS 2+; HYPOCHROMASIA 1+; MICROCYTES 1+
--- NOTE | 2020-10-02 08:33 | EKG ---
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
== END 2020-10-01 23:20 | disposition home or self-care (01) ==
LOC: M.ERS 21:47
PROVIDERS: Family Medicine
DX: F41.0 Panic disorder [episodic paroxysmal anxiety] (principal); I11.0 Hypertensive heart disease with heart failure; I50.9 Heart failure, unspecified; M17.12 Unilateral primary osteoarthritis, left knee; M10.9 Gout, unspecified; Z86.14 Personal history of Methicillin resistant Staphylococcus aureus infection